=== PATIENT | male | born 1965 | race Asian ===

== ENCOUNTER 2025-03-27 22:46 | Emergency (ER) | payer OTHER ==
[~2025-03-27] VITALS: Ht 188 cm; Wt 118.2 kg
[2025-03-27 23:15] VITALS: BP 157/83; PULSE 97; RESP 16; TEMP 99.1; O2SAT 100
[2025-03-27 23:43] LABS: PLATELET COUNT (AUTO) 165 K/uL (150-450); RED BLOOD CELL COUNT(AUTO) 4.57 MIL/uL (4.50-5.90); RED CELL DISTRIBUTION WIDTH 12.9 % (11.5-14.5); WHITE BLOOD COUNT (AUTO) 5.5 K/uL (4.5-11.0)
[2025-03-27 23:43] LABS: COVID AG,FIA SOURCE NASAL SWAB
[2025-03-27 23:54] LABS: CALCIUM, TOTAL 9.0 mg/dL (8.8-10.5); CREATININE 1.28 mg/dL (0.60-1.30); GLOMERULAR FILTR. RATE CALC 58 mL/min (>60); GLUCOSE,RANDOM 170 mg/dL (70-110); SODIUM SERUM 138 mmol/L (136-145); UREA NITROGEN, BLOOD 26 mg/dL (7-18)
[2025-03-28 00:03] LABS: TROPONIN I-HIGH SENSITIVITY 13 ng/L (<76)
[2025-03-28 00:12] LABS: SARS-COV2 (COVID) ANTIGEN,FIA Negative (Negative)
[2025-03-28 00:13] LABS: INFLUENZA TYPE A NEGATIVE FOR TYPE A (NEGATIVE); INFLUENZA TYPE B NEGATIVE FOR TYPE B (NEGATIVE)
[2025-03-28] MEDS ORDERED: AZIT-167 PO (01:05)
[2025-03-28] MEDS ORDERED: BENZ-227 PO (01:05)
== END 2025-03-28 01:13 | disposition home or self-care (01) ==
LOC: EMS 22:49
DX: J18.9 Pneumonia, unspecified organism (principal); E11.9 Type 2 diabetes mellitus without complications; I10 Essential (primary) hypertension; F17.210 Nicotine dependence, cigarettes, uncomplicated; Z20.822 Contact with and (suspected) exposure to COVID-19
CPT/HCPCS: 71045; 80048; 84484; 85025; 87804; 93005; 99285; 36415-L1; 36415-TC